=== PATIENT | female | born 1990 | race Caucasian/White ===

== ENCOUNTER 2021-05-30 11:12 | Outpatient (CLI) | payer OTHER | END 2021-05-30 11:13 | disposition home or self-care (01) | LOC: BICRAD 11:12 | PROVIDERS: ATTEND Family Medicine | DX: J20.9 Acute bronchitis, unspecified (principal) | CPT/HCPCS: 71046 ==

== ENCOUNTER 2021-09-04 22:49 | Emergency (ER) | payer OTHER ==
[2021-09-04] MEDS ORDERED: Ondansetron PF 4 MG/2 ML Vial ONE (23:27)
[2021-09-04 23:44] LABS: BHCG - Serum POSITIVE (NEGATIVE); Pregs Control Background? CLEAR/WHITE (CLR/WHITE); Pregs Control Bar Appear? YES (CONTROL BAR)
[2021-09-05 02:08] LABS: Bilirubin Negative (Negative); Blood, Urine Negative (Negative); Clarity Clear (Clear); Glucose, Urine (Dipstick) Normal (Negative); Ketone, Urine Trace mg/dL (Negative); Leukocyte Negative Leu/uL (Negative); Nitrite Negative (Negative); Protein, Urine (Dipstick) Negative (Neg-Trace); Urobilinogen Normal mg/dL (Less than 2); pH, Urine 5.5 (5.0-9.0)
== END 2021-09-05 02:42 | disposition home or self-care (01) ==
LOC: ERS 22:49
DX: O21.9 Vomiting of pregnancy, unspecified (principal); Z3A.09 9 weeks gestation of pregnancy
CPT/HCPCS: 36415; 81003; 84702; 84703; 96374; J2405

== ENCOUNTER 2021-09-07 16:52 | Emergency (ER) | payer OTHER | END 2021-09-07 17:43 | disposition home or self-care (01) | LOC: ERS 16:52 | DX: O99.511 Diseases of the respiratory system complicating pregnancy, first trimester (principal); J00 Acute nasopharyngitis [common cold]; Z3A.11 11 weeks gestation of pregnancy | CPT/HCPCS: 99283 ==

== ENCOUNTER 2022-09-13 00:49 | Emergency (ER) | payer OTHER | END 2022-09-13 02:11 | disposition home or self-care (01) | LOC: ERS 00:49 | DX: R05.9 Cough, unspecified (principal) | CPT/HCPCS: 71045 ==

== ENCOUNTER 2023-02-05 10:23 | Emergency (ER) | payer OTHER | END 2023-02-05 10:59 | disposition home or self-care (01) | LOC: ERS 10:23 | DX: J06.9 Acute upper respiratory infection, unspecified (principal) | CPT/HCPCS: 99283 ==

== ENCOUNTER 2023-02-15 20:07 | Emergency (ER) | payer OTHER ==
[2023-02-15 20:47] LABS: Bilirubin Negative (Negative); Blood, Urine Negative (Negative); CAUTI Indications for Culture Dysuria,urgency,freq; Clarity Turbid (Clear); Glucose, Urine (Dipstick) Normal (Negative); Ketone, Urine Negative (Negative); Leukocyte 250 Leu/uL (Negative); Nitrite Negative (Negative); Protein, Urine (Dipstick) 20 mg/dL (Neg-Trace); RBC/HPF 0-3 HPF (0-3); Specific Gravity, Urine 1.031 (1.002-1.036); Urobilinogen Normal mg/dL (Less than 2); WBC/HPF 21-50 HPF (0-3)
[2023-02-15 20:49] LABS: Bacteria/HPF 1+ HPF (None Seen); Urine Culture Reflex Yes Yes
[2023-02-15 21:43] LABS: Specific Gravity 1.029 (1.002-1.036)
[2023-02-15 21:48] LABS: Pregnancy Test - Urine (BHCG) Negative (Negative); Pregu Control Background? CLEAR/WHITE (CLR/WHITE); Pregu Control Bar Appear? YES (CONTROL BAR)
[2023-02-15 22:11] LABS: #Eosinphils 0.1 thou/uL (0.0-0.7); #Monocytes 0.9 thou/uL (0.11-0.59); #Neutrophils 5.8 thou/uL (1.40-6.50); %Basophils 0.3 % (0.0-1.0); %Lymphocytes 31.7 % (21.0-51.0); %Monocytes 8.5 % (0.0-10.0); %Neutrophils 58.2 % (42.0-75.0); Hemoglobin 12.2 g/dL (12.0-16.0); Mean Corpuscular HGB CONC 33.4 g/dL (32.0-36.0); Mean Corpuscular Hemoglobin 28.4 pg (27.0-31.0); Mean Corpuscular Volume 84.9 fl (78.0-98.0); Mean Platelet Volume 8.6 fL (7.4-10.4); Platelet Count 320 10x3/uL (130-400); RBC Distribution Width 13.2 % (11.5-14.5)
[2023-02-15 22:41] LABS: ALT (SGPT) 21 U/L (8-55); AST (SGOT) 15 U/L (5-34); Albumin 4.4 g/dL (3.5-5.0); Alkaline Phosphatase 89 U/L (40-110); Anion Gap 12 mmol/L (10-20); BUN (Urea Nitrogen) 11 mg/dL (7.0-18.7); Bilirubin, Total 0.2 mg/dL (0.2-1.2); Calc. Creatinine Clearance 0 mL/min (70-130); Calcium 9.3 mg/dL (7.8-10.44); Carbon Dioxide 24 mmol/L (22-29); Chloride 104 mmol/L (98-107); Estimated GFR 116; Globulin 3.1 g/dL (2.4-3.5); Glucose 90 mg/dL (70-105); Potassium 3.7 mmol/L (3.5-5.1); Protein, Total 7.5 g/dL (6.0-8.3); Sodium 136 mmol/L (136-145)
== END 2023-02-15 22:39 | disposition home or self-care (01) ==
LOC: ERS 20:07
DX: K59.00 Constipation, unspecified (principal); K62.5 Hemorrhage of anus and rectum
CPT/HCPCS: 36415; 80053; 81001; 81025; 85025; 86850; 86870; 86900; 86901; 87086; 99283